=== PATIENT | female | born 1930 | race Caucasian/White ===

== ENCOUNTER → 2017-01-23 | Outpatient (CLI) | payer MEDICARE, OTHER ==
[~2017-01-23] MED LIST: AMILORIDE/HCTZ1 TAB PO; AUGMENTIN 875-1 EACH PO; FEROSUL325 MG PO; PINDOLOL10 MG PO; RANITIDINE HCL150 MG PO
[2017-01-23 13:57] LABS: BUN 21 mg/dL (7-18); GFR (ESTIMATED) 53 ML/MIN (59-)
[2017-01-23 14:04] LABS: LYMPH # 1.6 K/mm3 (0.7-4.5); LYMPH % 22.2 % (10-50.0)
== END ==
LOC: CARL-LAB 09:12
PROVIDERS: Internal Medicine Adolescent Medicine
DX: E78.5 Hyperlipidemia, unspecified (principal); Z86.2 Personal history of diseases of the blood and blood-forming organs and certain disorders involving the immune mechanism